=== PATIENT | male | born 1980 | race Caucasian/White ===

== ENCOUNTER 2017-10-17 13:28 | Emergency (ER) | payer OTHER ==
[~2017-10-17] VITALS: Ht 175.3 cm; Wt 72.7 kg
[~2017-10-17 13:28] MED LIST: PREDNISONE10 M1 PO; RT ALBUTEROL I6.8 GM IH
[2017-10-17 14:55] VITALS: BP 120/81
== END 2017-10-17 14:34 | disposition home or self-care (01) ==
LOC: ED 13:28
DX: S61.012A Laceration without foreign body of left thumb without damage to nail, initial encounter (principal); W26.0XXA Contact with knife, initial encounter; Y99.0 Civilian activity done for income or pay; J45.909 Unspecified asthma, uncomplicated; Z79.899 Other long term (current) drug therapy; F17.200 Nicotine dependence, unspecified, uncomplicated